=== PATIENT | male | born 1980 | race Two or more races ===

== ENCOUNTER → 2022-12-26 | Outpatient (CLI) | payer MEDICAID ==
[~2022-12-26] VITALS: Ht 190.5 cm; Wt 129.3 kg
== END | disposition home or self-care (01) ==
LOC: Rad HDHVI 08:08
PROVIDERS: ATTEND Internal Medicine Cardiovascular Disease
DX: R94.31 Abnormal electrocardiogram [ECG] [EKG] (principal); R06.02 Shortness of breath; I48.91 Unspecified atrial fibrillation; R42 Dizziness and giddiness
CPT/HCPCS: 78452; 93017; 96374; A9500

== ENCOUNTER → 2022-12-27 | Outpatient (CLI) | payer MEDICAID | END | disposition home or self-care (01) | LOC: Rad HDHVI 14:41 | PROVIDERS: ATTEND Internal Medicine Cardiovascular Disease | DX: R42 Dizziness and giddiness (principal); R06.02 Shortness of breath | CPT/HCPCS: 93306 ==

== ENCOUNTER → 2023-02-07 | Outpatient (CLI) | payer MEDICAID ==
[~2023-02-07] MED LIST: METO-158 PO; RIVA20TA PO
[2023-02-07 11:47] VITALS: BP 118/74
[2023-02-07 12:10] VITALS: BP 123/81
== END | disposition home or self-care (01) ==
LOC: Rad HDHVI 11:41
PROVIDERS: ATTEND Internal Medicine Cardiovascular Disease
DX: Z01.818 Encounter for other preprocedural examination (principal); R94.31 Abnormal electrocardiogram [ECG] [EKG]; I50.33 Acute on chronic diastolic (congestive) heart failure; R06.02 Shortness of breath; I48.21 Permanent atrial fibrillation; I42.1 Obstructive hypertrophic cardiomyopathy
CPT/HCPCS: 71046; 93005; G0463

== ENCOUNTER 2023-02-08 07:51 | Day surgery (SDC) | payer MEDICAID ==
[2023-02-07 13:00] LABS: Basophils # (auto) 0 10 ^3/uL (0-0.2); Basophils % (auto) 0.6 % (0.0-2.0); Eosinophils # (auto) 0.2 10 ^3/uL (0-0.8); Eosinophils % (auto) 1.9 % (0.0-7.0); Hematocrit 49.1 % (41.0-53.0); Hemoglobin 16.4 g/dL (13.5-17.5); Lymphocytes # (auto) 1.6 10 ^3/uL (0.4-5.4); Lymphocytes % (auto) 19.7 % (10.0-50.0); Mean Corpuscular Hemoglobin 29.9 pg (28.0-32.0); Mean Corpuscular Hgb Conc. 33.3 g/dL (32.0-36.0); Mean Corpuscular Volume 89.6 fL (80.0-100.0); Monocytes # (auto) 0.6 10 ^3/uL (0-1.3); Monocytes % (auto) 7.5 % (0.0-12.0); Neutrophils # (auto) 5.8 10 ^3/uL (1.6-8.6); Neutrophils % (auto) 70.3 % (37.0-80.0); Nucleated Red Blood Cells % 0.4 %; Red Blood Cells 5.48 10^6/uL (4.5-5.90); Red Cell Distribution Width 13.3 % (11.8-14.3); White Blood Cell 8.3 10^3/uL (4.4-10.8)
[2023-02-07 13:15] LABS: INR 1.01 (0.9-1.15); Partial Thromboplastin Time 29.7 SEC (24.5-34.5)
[2023-02-07 13:25] LABS: Calcium 8.8 mg/dL (8.5-10.1)
[2023-02-07 13:27] LABS: BUN/Creatinine Ratio 9.2 (10.0-20.0)
[2023-02-08] VITALS (19 sets, daily range): BP systolic 73–123; BP diastolic 45–89
[~2023-02-08] VITALS: Ht 190.5 cm; Wt 129.3 kg
[2023-02-08] MEDS ORDERED: fentaNYL CITRATE 100 MCG/2 ML VL ONE (11:31)
[2023-02-08] MEDS ORDERED: ANGIOMAX 250 MG VIAL IV ONE (11:31)
[2023-02-08] MEDS ORDERED: MIDAZOLAM HCL 2MG/2ML 2ml VIAL (1mg/ml) ONE (11:32)
[2023-02-08] MEDS ORDERED: SODIUM CHL 0.9% 0 ML ONE (11:32)
[2023-02-08] MEDS ORDERED: LIDOCAINE 2%HCL (LOCAL ANESTH.) INJ 20ML MDV ONE (11:33)
[2023-02-08] MEDS ORDERED: IOHEXOL 350 MG/ML 100ML IJ ONE (11:37)
[2023-02-08] MEDS ORDERED: HYDROcodone-ACET 5/325MG TAB PO PRN (13:30)
[2023-02-08] MEDS ORDERED: ONDANSETRON HCL 4 MG/2 ML VIAL IV ONE (15:15)
== END 2023-02-08 16:00 | disposition home or self-care (01) ==
LOC: CATH 07:51
PROVIDERS: ATTEND Internal Medicine Cardiovascular Disease
DX: R07.89 Other chest pain (principal); R06.02 Shortness of breath; I48.0 Paroxysmal atrial fibrillation; I48.20 Chronic atrial fibrillation, unspecified; I10 Essential (primary) hypertension; E78.5 Hyperlipidemia, unspecified; Z79.899 Other long term (current) drug therapy; Z79.01 Long term (current) use of anticoagulants
CPT/HCPCS: 36415; 80048; 85025; 85610; 85730; 93458; C1894; J1644; J2250; J2405; J3010; Q9967; 99152

== ENCOUNTER → 2023-09-14 | Outpatient (CLI) | payer MEDICAID | END | disposition home or self-care (01) | LOC: Rad HDHVI 14:48 | PROVIDERS: ATTEND Internal Medicine Cardiovascular Disease | DX: I11.9 Hypertensive heart disease without heart failure (principal); R06.02 Shortness of breath | CPT/HCPCS: 93306 ==

== ENCOUNTER → 2024-07-07 | Outpatient (CLI) | payer MEDICAID ==
--- NOTE | 2024-07-07 16:14 | DVHSR ---
APPROVED REPORT EXAM: Two-dimensional and M-mode echocardiogram with Doppler and color Doppler. DIMENSIONS LVDd5.6 (3.8-5.7cm)LA (2D)4.7 (1.9-4.0cm)Aortic Root3.4 (2.0-3.7cm) LVDs4.3 (2.5-4.0cm)LA (MM) (1.9-4.0cm)Aortic Cusp Exc2.0 (1.5-2.0cm) EF (%) 46.8 (55-70%)Rt. Atrium4.5 (1.9-4.0cm)Asc. Aorta cm IVSd1.2 (0.7-1.1cm)RV (D)3.8 (1.8-2.4cm) PWd1.0 (0.7-1.1cm) Mitral Valve MitralMitral Stenosis E wave0.61m/sMV Mean GR.mmHg A wave0.42m/sMV Peak GR.11mmHg E/A ratio1.52D MVAcm2 DECEL [id number] 1/2 [place] Aortic Valve Aortic ValveAortic Stenosis V10.73m/Arnulfo Mean GR.2mmHg V20.93m/Arnulfo Peak GR.3mmHg Pulmonic Valve V20.38m/s Tricuspid Valve TR Velocity1.84m/s [id number] LEFT VENTRICLE The Ejection Fraction is 45-50%. ATRIA The left atrial size is normal. The right atrium size is normal. MITRAL VALVE The mitral valve is normal in structure and function. Mitral regurgitation is trace to mild. PULMONIC VALVE The pulmonic valve is not well visualized. TRICUSPID VALVE The tricuspid valve is grossly normal. There is trace tricuspid regurgitation. AORTIC VALVE The aortic valve opens well. No aortic regurgitation is present. GREAT VESSELS The aortic root is normal size. PERICARDIAL EFFUSION There is no pericardial effusion. Conclusion EF 45% LAE FAZAL
== END | disposition home or self-care (01) ==
LOC: Rad HDHVI 12:55
PROVIDERS: ATTEND Internal Medicine Cardiovascular Disease
DX: I34.0 Nonrheumatic mitral (valve) insufficiency (principal); I10 Essential (primary) hypertension; E78.5 Hyperlipidemia, unspecified
CPT/HCPCS: 93306